=== PATIENT | female | born 2000 | race Two or more races ===

== ENCOUNTER 2023-03-12 21:00 | Observation (INO) | payer MEDICAID ==
[~2023-03-12] VITALS: Ht 147.3 cm; Wt 72.7 kg
[2023-03-12 21:35] VITALS: BP 147/98; PULSE 101; RESP 18; O2SAT 0
[2023-03-12] MEDS ORDERED: PREN-96 OR (22:26)
[2023-03-12] MEDS ORDERED: LABE100T4 PO (22:26)
== END 2023-03-12 22:36 | disposition home or self-care (01) ==
LOC: ER 21:00 → LDRP 21:33
PROVIDERS: ADMIT Obstetrics & Gynecology; ATTEND Obstetrics & Gynecology
DX: O26.892 Other specified pregnancy related conditions, second trimester (principal); R06.02 Shortness of breath; R10.9 Unspecified abdominal pain; Z3A.22 22 weeks gestation of pregnancy
CPT/HCPCS: 81002; 94760; G0378